=== PATIENT | male | born 1970 | race Caucasian/White ===

== ENCOUNTER 2018-02-08 14:36 | Inpatient (IN) ==
[2018-02-08] MEDS ORDERED: Clindamycin 900 mg/NS Premix 900 MG/50 ML PIGGYBACK IV.SIG ONE (15:36)
[2018-02-08] MEDS ORDERED: Vancomycin Consult Pharmacy 1 EACH OTHER SCH (16:00)
[2018-02-08] MEDS ORDERED: Vancomycin Inj 1,000 MG in Sodium Chlor 0.9% Inj 250 ML IV.SIG SCH (16:00)
[2018-02-08] MEDS ORDERED: Morphine Inj 4 MG/ML Vial IV.PUSH PRN (16:02)
[2018-02-08] MEDS ORDERED: Naloxone Inj 0.4 MG/ML Vial IV.PUSH PRN (16:02)
--- NOTE | 2018-02-08 16:17 | ED ---
HPI General Chief complaint: Recheck/Abnormal Lab/Rx Stated complaint: recheck wound Time Seen by Provider: 02/08/18 15:28 History of Present Illness HPI narrative: This is a 47-year-old male who presents today with draining abscess from his right ankle and posterior scalp. Patient states he was seen yesterday and had it I&D. He is here for wound check. The patient was given clindamycin, 900 mg IV x1 dose. He was discharged with clindamycin and Bactrim prescription. He has not yet filled the prescriptions. The patient states that his friend who saw it yesterday and this morning says it appears to be worse. He does have cellulitis of the right ankle. There is purulent drainage noted from both wounds. Please note that there were no cultures obtained yesterday when he had the I&D. Related Data Previous Rx's Medication Instructions Recorded clindamycin HCl [Cleocin HCl] 300 mg PO Q6H 10 Days #80 cap 02/07/18 sulfamethoxazole-trimethoprim 1 mg PO Q12H #20 tab 02/07/18 [Bactrim DS] Allergies Allergy/AdvReac Type Severity Reaction Status Date / Time No Known Allergies Allergy Verified 02/07/18 19:31 Review of Systems ROS: all other systems reviewed are negative Constitutional Denies chills, Denies fever(s) and Denies night sweats Eyes Reports system reviewed and no additional complaints, except as docu ENT Reports system reviewed and no additional complaints, except as docu Cardiovascular Reports system reviewed and no additional complaints, except as docu Respiratory Reports system reviewed and no additional complaints, except as docu Gastrointestinal Denies abdominal pain, Denies nausea and Denies vomiting Genitourinary Reports system reviewed and no additional complaints, except as docu Musculoskeletal Denies back pain and Reports limited range of motion (Right ankle secondary to swelling and pain) Integumentary/Breasts Reports other (Draining abscess of the posterior scalp and right ankle.) [facility] Medical History Medical History H/O wisdom tooth extraction (Acute) Hernia (Acute) Hypertension (Acute) Schizo-affective schizophrenia (Acute) Social History Social History Substance History: No History of Abuse Smoking Status: Current every day smoker Tobacco Type: Cigarettes How Often Do You Have a Drink Containing Alcohol: Never Recent Travel in [facility] within the Last 8 Weeks: No Recent Out of Country Travel within the Last 8 Weeks: No Immunization History Tetanus Immunization: <5 Years Exam Narrative Exam Narrative: GENERAL: Well-developed well-nourished male in no acute respiratory distress. SKIN: Focused skin assessment warm/dry. There is a draining abscess with purulent material on his right ankle. There is also one on the posterior scalp. HEAD: Atraumatic. Normocephalic. EYES: No scleral icterus. No injection or drainage. ENT: No nasal bleeding or discharge. Mucous membranes pink and moist. NECK: Trachea midline. Supple. CARDIOVASCULAR: Regular rate and rhythm. No murmur appreciated. RESPIRATORY: No accessory muscle use. Clear to auscultation. Breath sounds equal bilaterally. GASTROINTESTINAL: Abdomen soft, non-tender, nondistended. Hepatic and splenic margins not palpable. MUSCULOSKELETAL: No obvious deformities. No clubbing. No cyanosis. No edema. NEUROLOGICAL: Awake and alert. No obvious cranial nerve deficits. Motor grossly within normal limits. Normal speech. Course Initial Documented Vital Signs Temperature 98.0 F 02/08/18 14:47 Pulse Rate 91 H 02/08/18 14:47 Respiratory Rate 20 02/08/18 14:47 Blood Pressure 172/91 H 02/08/18 14:47 Pulse Oximetry 98 02/08/18 14:47 Last Documented Vital Signs Temperature 98.0 F 02/08/18 14:47 Pulse Rate 91 H 02/08/18 14:47 Respiratory Rate 20 02/08/18 14:47 Blood Pressure 172/91 H 02/08/18 14:47 Pulse Oximetry 98 02/08/18 14:47 Medical Decision Making [facility] Narrative Medical decision making narrative: 47-year-old male presents with right ankle cellulitis and draining abscess. Patient also has posterior scalp draining abscess. He has failed outpatient antibiotics and will be admitted for IV antibiotics. He has been started on vancomycin and Zosyn. Case was discussed with the [facility] teaching service. Medical Screen Exam Complete: Yes Emergency Medical Condition: Yes Differential Diagnosis Differential Diagnosis: MRSA versus cellulitis versus osteomyelitis Discharge Plan Discharge Disposition Patient Disposition: 30 Still Patient Discharge Details Diagnosis: Cellulitis of right ankle, Abscess of scalp Physicians Team ED Provider: Sean Andres Primary Care Provider: Primary Care Migdalia Bustamante Attending Provider: Anthony Etienne Status ED Status: Admitted Patient
[2018-02-08] MEDS ORDERED: Vancomycin Inj 1,250 MG in Sodium Chlor 0.9% Inj 250 ML IV.SIG ONE (17:00)
[2018-02-08 17:09] LABS: Baso % (Auto) 0.4 % (0.0-2.0); Eos # (Auto) 0.2 th/mm3 (0.0-0.4); Eos % (Auto) 2.4 % (0.0-4.0); Lymph # (Auto) 1.1 th/mm3 (1.0-4.8); Lymph % (Auto) 10.7 % (9.0-44.0); Mean Corpuscular HGB Conc 33.4 % (32.0-36.0); Mean Corpuscular Hemoglobin 29.2 pg (27.0-34.0); Mean Corpuscular Volume 87.4 fL (80.0-100.0); Mean Platelet Volume 7.6 fL (7.0-11.0); Mono # (Auto) 0.8 th/mm3 (0.0-0.9); Mono % (Auto) 7.7 % (0.0-8.0); Neut # (Auto) 7.8 th/mm3 (1.8-7.7); Neut % (Auto) 78.8 % (16.0-70.0); Platelet Count 378 th/mm3 (150-450); Red Blood Count 4.46 mil/mm3 (4.50-5.90); White Blood Count 9.9 th/mm3 (4.0-11.0)
[2018-02-08] MEDS: Piperacil/Tazo 4.5 GM Premix 4.5 GM/100 ML BAG IV.SIG SCH ×2 (17:11→23:55)
[2018-02-08 17:29] LABS: Anion Gap 8 meq/L (5-15); Blood Urea Nitrogen 10 mg/dL (7-18); Calcium 8.1 mg/dL (8.5-10.1); Carbon Dioxide 27.2 meq/L (21.0-32.0); Chloride 106 meq/L (98-107); Glomerular Filtration Rate Greater Than 89 mL/min (>89); Glucose,Random 91 mg/dL (74-106); Potassium 3.5 meq/L (3.5-5.1); Sodium 141 meq/L (136-145)
[2018-02-08] MEDS ORDERED: Gadobutrol PF 7.5 MMOL/7.5 ML Vial (for RAD) IV.SIG ONE (17:39)
--- NOTE | 2018-02-08 18:14 | MR ---
EXAM DATE: 02/08/2018 5:16 PM EDT AGE/SEX: 47 years / Male INDICATIONS: Osteomyelitis. Open wound right lateral malleolus. CLINICAL DATA: This is the patient's initial encounter. Patient reports that signs and symptoms have been present for 1 week and indicates a pain score of 5/10. MEDICAL/SURGICAL HISTORY: None. None. COMPARISON: No prior exams available for comparison. TECHNIQUE: Multiplanar, multisequence MRI examination was performed with contrast and after the intr avenous administration of 7 ml Gadavist (gadobutrol) contrast as a single exam dose. FINDINGS: There is extensive soft tissue swelling over the lateral malleolus with an open wound at the lateral malleolus with a small subcutaneous fluid collection present measuring approximately 3 cm length and 1 cm in width. There is extensive edema and enhancement that extends to the lateral malleolus. There is no marrow edema in the distal tibia, distal fibula calcaneus or talus. There is no significant joint effusion to suggest a septic joint at this juncture. The edema and induration is in intimate association with the lateral fibular complex tendons. The ed lauren is also in intimate association with the peroneal longus and brevis tendons. There is a small amount fluid around the peroneal brevis. The flexor tendons on the opposite side ar e not involved CONCLUSION: 1. Subcutaneous inflammatory changes with small subcutaneous fluid collection over the tip of the la teral malleolus as above without definite osteomyelitis or joint changes to suggest a septic arthriti s. 2. The small fluid collection could be accessed carefully under ultrasound Electronically signed by: Ignacio Castaneda MD 02/08/2018 6:13 PM EDT
--- NOTE | 2018-02-08 18:42 | P.HPFP ---
History of Present Illness Primary Care Physician: No Primary Care Physician History of Present Illness: This patient is a homeless 47-year-old male with a history of schizophrenia, previously diagnosed diabetes which was deemed a missed diagnosis, GERD, who is who presents the ED for opened abscess on the left occiput as well as on the right lateral ankle. Patient previously in the ED yesterday for incision and drainage of both sites and was discharged with clindamycin and Bactrim which she was not able to fill due to his homeless and noninsured status. Patient reports that the abscess on his left occiput began 1 week ago as a pimple that he eventually popped and started to put peroxide on as well as triple antibiotic. He continued to be gets pimple the pain will continue to drain pus and blood. He reports that the area is tender when palpated deeply but overall does not hurt. He reports that the ankle abscess appeared 3-4 days ago and began as a soreness. He relieved that he had rolled or twisted his ankle unknowingly. The pain continued until the abscess formed. He said he felt 3 soft little balls inside of his right ankle which he then later popped and released pus. He denies any fevers, chills, chest pain, shortness of breath, nausea, vomiting, abdominal pain, or diarrhea, but does endorse coughing up phlegm for the last 2 weeks that is yellow. PMHx: Schizophrenia diagnosed in 1998 previously treated with Geodon until 2016 when patient lost her job and could not afford the medication, GERD, diabetes which was ruled a missed diagnosis after 2 years, and then unrepaired inguinal hernia Surgical Hx: Patient has had multiple dental surgeries starting at 3 years of age due to a retracted tooth which she reports was on his maxilla near his nose. He had his wisdom teeth extracted at the age of 15. Patient received an I&D of his head and right ankle yesterday. Medications: Patient previously on Geodon until 2016 currently not on any medications FHx: Mother at the age of 71 due to severe heart disease, father at 82 from suicide Social Hx: Patient has been homeless since 2016 he was previously working in factories, he has a [id number] smoking history with a 7-year break of absence. Patient is currently still an every day smoker smoking a pack a day. He denies any use of ethanol or drugs because he cannot afford it. Allergies: None Code Status: Full code - Diagnosis (1) Abscess of scalp (2) Cellulitis of right ankle (3) Schizophrenia (4) Diabetes Inpatient Certification: I certify that the inpatient services were ordered in accordance with Medicare regulations governing the order. This includes certification that hospital inpatient services are reasonable and necessary and in the case of services not specified as inpatient-only under 42 CFR 419.22(n), that they are appropriately provided as inpatient services in accordance to with the 2-midnight benchmark under 43 CFR 412.3(e) Estimated Total Length of Stay (Days): 2 Plans for Post Hospital Care: Home Review of Systems Constitutional: Denies chills, Denies fever(s), Denies headache(s), Denies dizziness, Eyes: Denies change in vision, Denies double vision, Denies blurry vision Cardiovascular: Denies chest pain, Denies fast heart rate, Denies rapid, pounding, or irregular heartbeat Respiratory: Denies shortness of breath or wheezing Gastrointestinal: Denies abdominal pain, Denies constipation, Denies loose stools, Denies nausea, Denies vomiting Genitourinary: Denies difficulty urinating, Denies painful urination, Denies urinary frequency, Denies blood in urine Musculoskeletal: Patient admits to pump on the back of his left occiput that eventually turned into an abscess that drained pus and blood as well as a right ankle that originally felt sore but later turned into an abscess that also drained pus. PMFSH - History History Provided By: Patient - Medical History Medical History: Medical History (Last Updated 02/07/18 @ 20:04 by Myra Arauz) H/O wisdom tooth extraction Hernia Hypertension Schizo-affective schizophrenia - Tobacco History Tobacco Use In Past 30 Days: Yes Smoking Status: Current every day smoker Tobacco Type: Cigarettes - Alcohol History How Often Do You Have a Drink Containing Alcohol: Never - Substance Use History Substance History: No History of Abuse - Travel History Recent Travel in the [place] Within the Last 8 Weeks: No Recent Travel Out of the Country Within the Last 8 Weeks: No - Immunization History Tetanus Immunization: <5 Years Medications and Allergies Active Medications: Active Medications Hydrocodone Bitart/Acetaminophen ([place] 5/325) 1 tab PO Q4H PRN PRN Reason: PAIN SCALE 3 TO 5 Hydrocodone Bitart/Acetaminophen ([place] 7.5/325) 1 tab PO Q4H PRN PRN Reason: PAIN SCALE 6 TO 10 Pharmacy Profile Note (Vancomycin Consult Pharmacy) 0 mls @ 0 mls/hr OTHER UNSCH [facility]ENOBIA Piperacillin/Tazobactam/Dextrose (Zosyn 4.5 Gm Premix) 4.5 gm in 100 mls @ 200 mls/hr IV.SIG Q6H [facility] Last Infusion: 02/08/18 18:19 Dose: Infused Ibuprofen (Motrin) 400 mg PO Q6HR [facility]OB[facility] Morphine Sulfate (Morphine Inj) 4 mg IV.PUSH Q3H PRN PRN Reason: BREAKTHROUGH PAIN Naloxone HCl (Narcan Inj) 0.4 mg IV.PUSH UNSCH PRN PRN Reason: SEE LABEL COMMENTS Allergies Allergy/AdvReac Type Severity Reaction Status Date / Time No Known Allergies Allergy Verified 02/07/18 19:31 Exam Vital signs: Vital Signs 02/08/18 14:47 Temperature 98.0 F Pulse Rate 91 H Respiratory Rate 20 Blood Pressure 172/91 H Pulse Oximetry 98 Intake & Output 02/07/18 02/08/18 02/08/18 18:59 06:59 18:59 Intake Total 150 / 150 Balance 150 / 150 Weight 81.647 kg Intake: IV 150 / 150 Cleocin 900 mg/NS Premix 900 mg 50 / 50 In 50 ml @ 100 mls/hr IV.SIG ONCE ONE Rx#:[id number] Zosyn 4.5 GM Premix 4.5 gm In 100 / 100 100 ml @ 200 mls/hr IV.SIG Q6H [facility] Rx#:[id number] Narrative: GENERAL: Well-nourished, well-developed patient but disheveled. No acute distress. SKIN: Patient has an 11 x 9 cm abscess in the left side of his occiput with a 2.5 x 2.5 draining opening that is visibly draining green purulent material. The patient also has a 10 x 10 area of erythema and abscess with a 2 x 2 opening which is also draining purulent material. A cotton swab was inserted into the wound which did touch upon. The rest the patient's extremities were checked including feet with no other visible signs of infection. EYES: No scleral icterus. No injection or drainage. PERRLA. EOMI. HENT: Normocephalic. Atraumatic. MMM. OP Benign. NECK: Supple, trachea midline. No JVD or lymphadenopathy. CARDIOVASCULAR: Regular rate and rhythm without obvious murmurs, gallops, or rubs. RESPIRATORY: Breath sounds equal bilaterally. No accessory muscle use. CTAB. GASTROINTESTINAL: Abdomen soft, non-tender, nondistended. BS WNL. BACK: Nontender without obvious deformity. No CVA tenderness. NEURO/PSYCH: Afocal. Awake, alert, and oriented x3. Results - Labs Result diagrams: 02/08/18 16:20 02/08/18 16:20 Abnormal lab results 02/08/18 02/08/18 02/08/18 Range/Units 16:20 16:20 16:20 RBC 4.46 L (4.50-5.90) mil/mm3 Neut % (Auto) 78.8 H (16.0-70.0) % Neut # (Auto) 7.8 H (1.8-7.7) th/mm3 ESR 40 H (0-15) mm/hr Calcium 8.1 L (8.5-10.1) mg/dL Short CBC 02/08/18 Range/Units 16:20 WBC 9.9 (4.0-11.0) th/mm3 Hgb 13.0 (13.0-17.0) gm/dL Hct 39.0 (39.0-51.0) % Plt Count 378 (150-450) th/mm3 [facility] 02/08/18 16:20 Sodium 141 Potassium 3.5 Chloride 106 Carbon Dioxide 27.2 BUN 10 Creatinine 0.85 Calcium 8.1 L - Imaging Impressions Ankle MRI 02/08/18 16:14 CONCLUSION: 1. Subcutaneous inflammatory changes with small subcutaneous fluid collection over the tip of the lateral malleolus as above without definite osteomyelitis or joint changes to suggest a septic arthritis. 2. The small fluid collection could be accessed carefully under ultrasound Caprini VTE Risk Assessment Caprini VTE Risk Assessment: No/Low Risk (score <= 1) Caprini Risk Assessment Model: Point Value = 1 Point Value = 2 Point Value = 3 Point Value = 5 Age 41-60 Minor surgery BMI > 25 kg/m2 Swollen legs Varicose veins or History of unexplained or recurrent spontaneous Oral contraceptives or hormone replacement Sepsis (< 1 month) Serious lung disease, including pneumonia (< 1 month) Abnormal pulmonary function Acute myocardial infarction Congestive heart failure (< 1 month) History of inflammatory bowel disease Medical patient at bed rest Age 61-74 Arthroscopic surgery Major open surgery (> 45 min) Laparoscopic surgery (> 45 min) Malignancy Confined to bed (> 72 hours) Immobilizing plaster cast Central venous access Age >= 75 History of VTE Family history of VTE Factor V Leiden Prothrombin [id number] Lupus anticoagulant Anticardiolipin antibodies Elevated serum homocysteine Heparin-induced thrombocytopenia Other congenital or acquired thrombophilia Stroke (< 1 month) Elective arthroplasty Hip, pelvis, or leg fracture Acute spinal cord injury (< 1 month) Prophylaxis Regimen: Total Risk Factor Score Risk Level Prophylaxis Regimen 0-1 Low Early ambulation 2 Moderate Order ONE of the following: *Sequential Compression Device (SCD) *Heparin 5000 units SQ BID 3-4 Higher Order ONE of the following medications: *Heparin 5000 units SQ TID *Enoxaparin/Lovenox 40 mg SQ daily (WT < 150 kg, CrCl > 30 mL/min) *Enoxaparin/Lovenox 30 mg SQ daily (WT < 150 kg, CrCl > 10-29 mL/min) *Enoxaparin/Lovenox 30 mg SQ BID (WT < 150 kg, CrCl > 30 mL/min) AND/OR *Sequential Compression Device (SCD) 5 or more Highest Order ONE of the following medications: *Heparin 5000 units SQ TID (Preferred with Epidurals) *Enoxaparin/Lovenox 40 mg SQ daily (WT < 150 kg, CrCl > 30 mL/min) *Enoxaparin/Lovenox 30 mg SQ daily (WT < 150 kg, CrCl > 10-29 mL/min) *Enoxaparin/Lovenox 30 mg SQ BID (WT < 150 kg, CrCl > 30 mL/min) AND *Sequential Compression Device (SCD) Assessment and Plan - Assessment (1) Abscess of scalp Code(s): L02.811 - Cutaneous abscess of head [any part, except face] Status: Acute Plan: Patient is a one-week history of scalp abscess on the back of his left occiput. The abscess was incised and drained in the ED recently. Patient was not able to take his prescribed clindamycin and Bactrim due to his uninsured status as well as being homeless. Patient has been placed on broad-spectrum antibiotics include vancomycin, Zosyn, and clindamycin. The area of erythema has been demarcated and will be assessed tomorrow morning. Patient is currently afebrile with no signs of systemic infection but blood cultures have been taken. -Continue broad-spectrum antibiotics until cultures return -Follow-up blood cultures -Follow-up with wound care recommendations (2) Cellulitis of right ankle Code(s): L03.115 - Cellulitis of right lower limb Status: Acute Plan: Patient has an open and draining abscess over the lateral malleolus of the right ankle. Due to positive probe test and MRI of the ankle was completed that showed subcutaneous inflammatory changes with fluid collection of the tip of the lateral malleolus without definite osteomyelitis or joint changes to suggest septic arthritis. Patient ESR was 40 which is not suggestive of osteomyelitis at this time. The patient has been placed on broad-spectrum antibiotics include vancomycin and Zosyn as well as clindamycin. Patient currently has wound consult in as well as a consult with case management. -Continue antibiotic treatment The area has been demarcated and will be reassessed tomorrow morning. -Follow-up with wound care recommendations -Monitor erythemic margins -Follow-up with wound cultures (3) Schizophrenia Code(s): F20.9 - Schizophrenia, unspecified Status: Acute Plan: Patient reports being diagnosed with schizophrenia in 1998 and placed on Geodon 2015 when he cannot afford his medication any longer. Patient denies any visual or auditory hallucinations at this time. Patient also denies patient currently asymptomatic and will be referred to psychiatric treatment outpatient. -If patient becomes acutely psychotic consider the use of Geodon (4) Diabetes Code(s): E11.9 - Type 2 diabetes mellitus without complications Status: Acute Plan: Reports previously being diagnosed as a type II diabetic years ago, a diagnosis was later rescinded and deemed a missed diagnosis. Patient had a random glucose of 91 in the ED. Patient currently not hyperglycemic and blood glucose will be monitored to assess hyper or hypoglycemia.
[2018-02-08] MEDS: Ibuprofen 400 MG Tablet PO SCH ×2 (19:25→23:56)
[2018-02-09] MEDS: Piperacil/Tazo 4.5 GM Premix 4.5 GM/100 ML BAG IV.SIG SCH ×4 (05:37→23:33)
[2018-02-09] MEDS: Ibuprofen 400 MG Tablet PO SCH ×4 (05:38→23:33)
[2018-02-09 08:36] LABS: Baso % (Auto) 0.5 % (0.0-2.0); Eos # (Auto) 0.3 th/mm3 (0.0-0.4); Eos % (Auto) 3.7 % (0.0-4.0); Hematocrit 37.7 % (39.0-51.0); Hemoglobin 12.3 gm/dL (13.0-17.0); Lymph # (Auto) 1.2 th/mm3 (1.0-4.8); Lymph % (Auto) 15.3 % (9.0-44.0); Mean Corpuscular HGB Conc 32.7 % (32.0-36.0); Mean Corpuscular Hemoglobin 28.5 pg (27.0-34.0); Mean Corpuscular Volume 87.3 fL (80.0-100.0); Mean Platelet Volume 7.3 fL (7.0-11.0); Mono # (Auto) 0.7 th/mm3 (0.0-0.9); Mono % (Auto) 9.2 % (0.0-8.0); Neut # (Auto) 5.6 th/mm3 (1.8-7.7); Neut % (Auto) 71.3 % (16.0-70.0); Platelet Count 338 th/mm3 (150-450); Red Blood Count 4.32 mil/mm3 (4.50-5.90); Red Cell Distribution Width 14.5 % (11.6-17.2); White Blood Count 7.9 th/mm3 (4.0-11.0)
[2018-02-09 09:04] LABS: Anion Gap 5 meq/L (5-15); Carbon Dioxide 28.2 meq/L (21.0-32.0); Chloride 110 meq/L (98-107); Glomerular Filtration Rate Greater Than 89 mL/min (>89); Glucose,Random 91 mg/dL (74-106); Potassium 3.8 meq/L (3.5-5.1); Sodium 143 meq/L (136-145)
[2018-02-09 09:13] LABS: Blood Urea Nitrogen 9 mg/dL (7-18)
[2018-02-09] MEDS: Vancomycin Inj 1,750 MG in Sodium Chlor 0.9% Inj 500 ML IV.SIG SCH (12:57)
--- NOTE | 2018-02-09 15:44 | P.PNFP ---
Subjective Interval history: Patient was seen at bedside this morning. There were no acute events overnight. Patient reports no change in status. He denies any discomfort in the back of his head even while sleeping on the abscess. He denies any changes in drainage. It was discussed with the patient the possibility that this might be a co-infected area with possible fungus and a fungal culture was taken at bedside. Patient denies any subjective fevers, chills, shortness of breath, chest pain, nausea, or vomiting. All questions were answered to the patient's satisfaction and patient reports that he understands and agrees with the plan. <Cornelio Zamudio - 02/09/18 15:44> Results - Labs Result diagrams: 02/09/18 08:18 02/09/18 08:18 <Anthony Etienne - 02/09/18 21:04> Abnormal lab results 02/09/18 02/09/18 Range/Units 08:18 08:18 RBC 4.32 L (4.50-5.90) mil/mm3 Hgb 12.3 L (13.0-17.0) gm/dL Hct 37.7 L (39.0-51.0) % Neut % (Auto) 71.3 H (16.0-70.0) % Maries % (Auto) 9.2 H (0.0-8.0) % Chloride 110 H (98-107) meq/L Calcium 8.0 L (8.5-10.1) mg/dL Short CBC 02/09/18 Range/Units 08:18 WBC 7.9 (4.0-11.0) th/mm3 Hgb 12.3 L (13.0-17.0) gm/dL Hct 37.7 L (39.0-51.0) % Plt Count 338 (150-450) th/mm3 BMP 02/09/18 08:18 Sodium 143 Potassium 3.8 Chloride 110 H Carbon Dioxide 28.2 BUN 9 Creatinine 0.80 Calcium 8.0 L <Anthony Etienne - 02/09/18 21:04> Abnormal lab results 02/08/18 02/08/18 02/08/18 Range/Units 16:20 16:20 16:20 RBC 4.46 L (4.50-5.90) mil/mm3 Hgb (13.0-17.0) gm/dL Hct (39.0-51.0) % Neut % (Auto) 78.8 H (16.0-70.0) % Maries % (Auto) (0.0-8.0) % Neut # (Auto) 7.8 H (1.8-7.7) th/mm3 ESR 40 H (0-15) mm/hr Chloride (98-107) meq/L Calcium 8.1 L (8.5-10.1) mg/dL 02/09/18 02/09/18 Range/Units 08:18 08:18 RBC 4.32 L (4.50-5.90) mil/mm3 Hgb 12.3 L (13.0-17.0) gm/dL Hct 37.7 L (39.0-51.0) % Neut % (Auto) 71.3 H (16.0-70.0) % Maries % (Auto) 9.2 H (0.0-8.0) % Neut # (Auto) (1.8-7.7) th/mm3 ESR (0-15) mm/hr Chloride 110 H (98-107) meq/L Calcium 8.0 L (8.5-10.1) mg/dL Short CBC 02/08/18 02/09/18 Range/Units 16:20 08:18 WBC 9.9 7.9 (4.0-11.0) th/mm3 Hgb 13.0 12.3 L (13.0-17.0) gm/dL Hct 39.0 37.7 L (39.0-51.0) % Plt Count 378 338 (150-450) th/mm3 [facility] [place] [facility] 02/08/18 02/09/18 16:20 08:18 Sodium 141 143 Potassium 3.5 3.8 Chloride 106 110 H Carbon Dioxide 27.2 28.2 BUN 10 9 Creatinine 0.85 0.80 Calcium 8.1 L 8.0 L <Cornelio Zamudio - 02/09/18 15:44> - Imaging Impressions Ankle MRI 02/08/18 16:14 CONCLUSION: 1. Subcutaneous inflammatory changes with small subcutaneous fluid collection over the tip of the lateral malleolus as above without definite osteomyelitis or joint changes to suggest a septic arthritis. 2. The small fluid collection could be accessed carefully under ultrasound <Cornelio Zamudio - 02/09/18 15:44> Physical Exam Vital signs: Vital Signs 02/09/18 00:00 02/09/18 04:00 02/09/18 08:00 Temperature 98.2 F 97.6 F 96.4 F L Pulse Rate 52 L 60 Respiratory Rate 20 20 16 Blood Pressure 137/87 134/82 152/83 H Pulse Oximetry 96 96 94 L 02/09/18 10:50 02/09/18 12:00 Temperature 97.9 F Pulse Rate 60 Respiratory Rate 18 Blood Pressure 137/77 Pulse Oximetry 92 L 96 Intake & Output 02/09/18 02/09/18 02/10/18 06:59 18:59 06:59 Intake Total 462.5 / 462.5 717.5 / 717.5 Balance 462.5 / 462.5 717.5 / 717.5 Weight 85.9 kg Intake: IV 462.5 / 462.5 717.5 / 717.5 Zosyn 4.5 GM Premix 4.5 gm In 200 / 200 200 / 200 100 ml @ 200 mls/hr IV.SIG Q6H [facility] Rx#:[id number] Vancomycin Inj 1,250 MG In NS 262.5 / 262.5 Inj 250 ML @ 250 mls/hr IV.SIG ONCE ONE Rx#:[id number] Vancomycin Inj 1,750 MG In NS 517.5 / 517.5 Inj 500 ML @ 250 mls/hr IV.SIG Q12H [facility] Rx#:[id number] Other: # Voids 2 Date of Last Bowel Movement 02/08/18 02/08/18 # Bowel Movements 1 <Anthony Etienne - 02/09/18 21:04> Vital Signs 02/08/18 20:00 02/09/18 00:00 02/09/18 04:00 Temperature 98.2 F 98.2 F 97.6 F Pulse Rate 83 52 L Respiratory Rate 20 20 20 Blood Pressure 150/73 H 137/87 134/82 Pulse Oximetry 94 L 96 96 02/09/18 08:00 02/09/18 10:50 02/09/18 12:00 Temperature 96.4 F L 97.9 F Pulse Rate 60 60 Respiratory Rate 18 18 Blood Pressure 152/83 H 137/77 Pulse Oximetry 94 L 92 L 96 Intake & Output 1002/09/18 02/09/18 18:59 06:59 18:59 Intake Total 150 / 150 462.5 / 462.5 100 / 100 Balance 150 / 150 462.5 / 462.5 100 / 100 Weight 81.647 kg 85.9 kg Intake: IV 150 / 150 462.5 / 462.5 100 / 100 Cleocin 900 mg/NS Premix 900 mg 50 / 50 In 50 ml @ 100 mls/hr IV.SIG ONCE ONE Rx#:[id number] Zosyn 4.5 GM Premix 4.5 gm In 100 / 100 200 / 200 100 / 100 100 ml @ 200 mls/hr IV.SIG Q6H [facility] Rx#:[id number] Vancomycin Inj 1,250 MG In NS 262.5 / 262.5 Inj 250 ML @ 250 mls/hr IV.SIG ONCE ONE Rx#:[id number] Other: # Voids 2 Date of Last Bowel Movement 02/08/18 02/08/18 # Bowel Movements 1 <Cornelio Zamudio 02/09/18 15:44> Narrative: GENERAL: Well-nourished, well-developed patient. Cooperative and engaging. No acute distress. SKIN: Abscess on left occiput has receded approximately a centimeter from previously demarcated area. The surrounding tissue is less erythematous but still has significant induration without fluctuance. The wound continues to drain a green colored purulent material that is not noticeably malodorous. Wound continues to be nonpainful upon palpation. Abscess in the lateral right malleolus appears unchanged from physical exam yesterday. Margins continue to be at light of erythema, the erythema has not gone beyond nor receded from the previous demarcation. Wound continues to drain greenish purulent material. EYES: No scleral icterus. No injection or drainage. EOMI. HENT: Normocephalic. Atraumatic. CARDIOVASCULAR: Regular rate and rhythm without obvious murmurs, gallops, or rubs. RESPIRATORY: Breath sounds equal bilaterally. No accessory muscle use. CTAB. GASTROINTESTINAL: Abdomen soft, non-tender, nondistended. BS WNL. BACK: Nontender without obvious deformity. No CVA tenderness. NEURO/PSYCH: Afocal. Awake, alert, and oriented x3. <Cornelio Zamudio 02/09/18 15:44> Assessment and Plan - Assessment (1) Abscess of scalp Code(s): L02.811 - Cutaneous abscess of head [any part, except face] Status: Acute (2) Cellulitis of right ankle Code(s): L03.115 - Cellulitis of right lower limb Status: Acute (3) Schizophrenia Code(s): F20.9 - Schizophrenia, unspecified Status: Acute (4) Diabetes Code(s): E11.9 - Type 2 diabetes mellitus without complications Status: Acute <Jaimie,Anthony - 02/09/18 21:04> (1) Abscess of scalp Code(s): L02.811 - Cutaneous abscess of head [any part, except face] Status: Acute Plan: Abscess on left occiput of his scalp appears to be receding from previous demarcation. The wound continues to be painless and fungal cultures were taken by myself Dr. Tovar this morning. -Continue broad-spectrum antibiotics until cultures return -Blood culture showed no growth at 1 day -Follow-up with fungal culture and smear -Continue vancomycin and Zosyn (2) Cellulitis of right ankle Code(s): L03.115 - Cellulitis of right lower limb Status: Acute Plan: Patient cellulitis of the right ankle appears unchanged from yesterday. Demarcation continues to be a area of erythema. The wound itself continues to drain green purulent material. Gram stain and wound cultures have returned for the right ankle which showed MRSA, patient to continue on vancomycin. -Follow-up with wound care recommendations -Monitor erythemic margins -Continue vancomycin (3) Schizophrenia Code(s): F20.9 - Schizophrenia, unspecified Status: Acute Plan: Patient reports being diagnosed with schizophrenia in 1998 and placed on Geodon 2015 when he cannot afford his medication any longer. Patient denies any visual or auditory hallucinations at this time. Patient also denies patient currently asymptomatic and will be referred to psychiatric treatment outpatient. -If patient becomes acutely psychotic consider the use of Geodon (4) Diabetes Code(s): E11.9 - Type 2 diabetes mellitus without complications Status: Acute Plan: Reports previously being diagnosed as a type II diabetic years ago, a diagnosis was later rescinded and deemed a missed diagnosis. Patient had a random glucose of 91 in the ED and 91 this morning and repeat blood work. Patient unlikely to have diabetes, and history of missed diagnosis most likely correct. -Monitor for any signs of hypoglycemia <Cornelio Zamudio - 02/09/18 15:29> - Attending Attestation The exam, history, and the medical decision-making described in the above note were completed with the assistance of the resident physician. I reviewed and agree with the findings presented. I attest that I had a [id number] encounter with the patient on the same day, and personally performed and documented my assessment and findings in the medical record. <Anthony Etienne - 02/09/18 21:04>
--- NOTE | 2018-02-09 17:54 | P.PNWCN ---
Wound Care Nurse Consult Description: Consult for Wound Management of infected and ulcerated wound lateral right ankle and posterior head per Dr Lew Communicated with: Patient Chepe, RN Called call center @[phone], waited on hold for 10 minutes listening to how the next available agent would be with me shortly, with position in que being 1 for ten minutes and then being disconnected. Called back and was able to speak with call or contact centre operator who placed page to Dr Zamudio. Recommendation: I&D with washout of posterior head. Possible wound VAC placement. If wound is not wound VAC appropriate after I&D with washout; Recommend: Dakins quarter strength (0.125%) moist to dry BID packing after irrigating with NS (x2 weeks). Right lateral malleolus BID: Quarter strength Dakins (0.125%) moist to dry BID packing after irrigating with NS (x2 weeks). Additional information: Patient seen on for head and ankle wounds. Wounds cleansed with wound cleanser and gauze. Wounds were measured. Wounds packed with Iodoform and covered with dry covers dated today. Wound/Pressure Injury - Patient Status Premedicated for Pain Prior to Dressing Change: No - Wound Posterior Head Wound Assessment: Admission Is This a Chronic Wound: No Requested from Provider a Wound Care Consult: Yes Length (cm): 1.5 (cm) Width (cm): 2.4 (cm) Depth (cm): 1.3 (cm) Wound Bed Appearance: [place] (~20%), Red (non granulating tissue~40%), Yellow ( slough ~30% adipose ~10% ) Wound Bed Appearance: Surgical debridement at bedside performed 2 days ago leaving an open wound in the shape of a sideways cross. Wound bed is moist with yellow thick exudate noted from wound and tiny holes in the periwound when gently pressing on the induration from 7-9 o'clock extending out ~2-3 cm with erythema noted circumferentially. Surrounding Tissue Appearance: Erythema, Indurated Surrounding Tissue Temperature: Warm Drainage Description: Thick (yellow) Drainage Amount: Minimal Drainage Odor: No Odor Dressing Status: Changed Cleansing Solution: wound cleanser Wound Packing Type: Gauze Packing Strips (iodoform) Primary Dressing: bordered gauze Tape Type: Transparent Wound Dressing Change Date: 02/09/18 Right Lateral Malleolus Wound Assessment: Admission Is This a Chronic Wound: No Requested from Provider a Wound Care Consult: Yes Length (cm): 2 (cm) Width (cm): 1.6 (cm) Depth (cm): 0.8 (cm) Wound Bed Appearance: White, Yellow Wound Bed Appearance: loosely adherent slough obscuring true wound bed tissues, bone palpated, sanguinous thin minimal drainage. Periwound is macerated with friable loosely adhered white/hassan tissue. Surrounding Tissue Appearance: Edematous, Erythema Surrounding Tissue Temperature: Warm Drainage Description: Thin (serosang) Drainage Amount: Minimal Drainage Odor: Slight Odor Dressing Status: Changed Cleansing Solution: wound cleanser Wound Packing Type: Gauze Packing Strips (iodoform) Primary Dressing: Gauze Pad Cover Dressing: Gauze Roll/Wrap Wound Dressing Change Date: 02/09/18
[2018-02-10] MEDS: Vancomycin Inj 1,750 MG in Sodium Chlor 0.9% Inj 500 ML IV.SIG SCH ×2 (00:38→15:44)
[2018-02-10] MEDS: Piperacil/Tazo 4.5 GM Premix 4.5 GM/100 ML BAG IV.SIG SCH ×4 (05:26→23:54)
[2018-02-10] MEDS: Ibuprofen 400 MG Tablet PO SCH ×4 (05:27→23:55)
[2018-02-10 07:14] LABS: Baso # (Auto) 0.1 th/mm3 (0.0-0.2); Baso % (Auto) 1.1 % (0.0-2.0); Eos # (Auto) 0.3 th/mm3 (0.0-0.4); Eos % (Auto) 4.5 % (0.0-4.0); Hematocrit 36.6 % (39.0-51.0); Lymph # (Auto) 1.3 th/mm3 (1.0-4.8); Lymph % (Auto) 22.3 % (9.0-44.0); Mean Corpuscular HGB Conc 32.7 % (32.0-36.0); Mean Corpuscular Hemoglobin 28.6 pg (27.0-34.0); Mean Corpuscular Volume 87.4 fL (80.0-100.0); Mean Platelet Volume 7.5 fL (7.0-11.0); Mono # (Auto) 0.5 th/mm3 (0.0-0.9); Mono % (Auto) 9.3 % (0.0-8.0); Neut # (Auto) 3.6 th/mm3 (1.8-7.7); Neut % (Auto) 62.8 % (16.0-70.0); Platelet Count 346 th/mm3 (150-450); Red Blood Count 4.19 mil/mm3 (4.50-5.90); Red Cell Distribution Width 14.3 % (11.6-17.2); White Blood Count 5.8 th/mm3 (4.0-11.0)
[2018-02-10 07:51] LABS: Glomerular Filtration Rate Greater Than 89 mL/min (>89)
--- NOTE | 2018-02-10 09:43 | P.CON ---
History of Present Illness Consult date: 02/10/18 Reason for Consult: Occipital scalp abscess Primary Care Provider: No Primary Care Physician History of Present Illness: Patient is a 47-year-old male with a history of schizophrenia who has previously diagnosed diabetes and presented to the ED for abscess of the occiput as well as right lateral ankle. Patient was seen in the ED on 1012, at which time he underwent incision and drainage of both sites. Patient reports that the abscess on the occiput began a week prior that was a bite or pimple that he squeezed daily, after which he put peroxide on it. Patient was admitted for definitive care after failing outpatient management. Review of Systems Respiratory: Reports excessive phlegm production PMFSH - History History Provided By: Patient - Medical History Medical History: Medical History (Last Reviewed 02/10/18 @ 08:38 by Shahla Willard) MDRO (multiple drug resistant organisms) resistance Onset Date: ~02/08/18 H/O wisdom tooth extraction Hernia Hypertension Schizo-affective schizophrenia - Tobacco History Tobacco Use In Past 30 Days: Yes Smoking Status: Current every day smoker Tobacco Type: Cigarettes - Alcohol History How Often Do You Have a Drink Containing Alcohol: Never - Substance Use History Substance History: No History of Abuse - Travel History Recent Travel in the [place] Within the Last 8 Weeks: No Recent Travel Out of the Country Within the Last 8 Weeks: No - Immunization History Tetanus Immunization: <5 Years Medications and Allergies Active Medications: Active Medications Hydrocodone Bitart/Acetaminophen ([place] 5/325) 1 tab PO Q4H PRN PRN Reason: PAIN SCALE 3 TO 5 Hydrocodone Bitart/Acetaminophen ([place] 7.5/325) 1 tab PO Q4H PRN PRN Reason: PAIN SCALE 6 TO 10 Pharmacy Profile Note (Vancomycin Consult Pharmacy) 0 mls @ 0 mls/hr OTHER UNSCH [facility] Piperacillin/Tazobactam/Dextrose (Zosyn 4.5 Gm Premix) 4.5 gm in 100 mls @ 200 mls/hr IV.SIG Q6H [facility] Last Infusion: 02/10/18 05:55 Dose: Infused Vancomycin HCl 1,750 mg/ (Sodium Chloride) 517.5 mls @ 250 mls/hr IV.SIG Q12H [facility] Last Infusion: 02/10/18 02:45 Dose: Infused Ibuprofen (Motrin) 400 mg PO Q6HR [facility] Last Admin: 02/10/18 05:27 Dose: 400 mg Miscellaneous Information ([facility] Ordered Lab Info) 0 each OTHER ONCE ONE Stop: 02/11/18 00:46 Morphine Sulfate (Morphine Inj) 4 mg IV.PUSH Q3H PRN PRN Reason: BREAKTHROUGH PAIN Naloxone HCl (Narcan Inj) 0.4 mg IV.PUSH UNSCH PRN PRN Reason: SEE LABEL COMMENTS Allergies Allergy/AdvReac Type Severity Reaction Status Date / Time No Known Allergies Allergy Verified 02/07/18 19:31 Physical Exam Vital signs: Vital Signs 02/09/18 10:50 02/09/18 12:00 02/09/18 20:00 Temperature 97.9 F 97.7 F Pulse Rate 60 70 Respiratory Rate 18 20 Blood Pressure 137/77 151/89 H Pulse Oximetry 92 L 96 96 02/09/18 21:17 02/10/18 00:00 02/10/18 04:00 Temperature 97.9 F 97.6 F Pulse Rate 55 L 68 Respiratory Rate 20 20 Blood Pressure 143/91 H 140/71 Pulse Oximetry 93 L 96 96 Intake & Output 02/09/18 02/10/18 02/10/18 18:59 06:59 18:59 Intake Total 717.5 / 717.5 717.5 / 717.5 Balance 717.5 / 717.5 717.5 / 717.5 Weight 88.1 kg Intake: IV 717.5 / 717.5 717.5 / 717.5 Zosyn 4.5 GM Premix 4.5 gm In 200 / 200 200 / 200 100 ml @ 200 mls/hr IV.SIG Q6H [facility] Rx#:[id number] Vancomycin Inj 1,750 MG In NS 517.5 / 517.5 517.5 / 517.5 Inj 500 ML @ 250 mls/hr IV.SIG Q12H [facility] Rx#:[id number] Other: # Voids 2 Date of Last Bowel Movement 02/08/18 02/08/18 - Constitutional no acute distress - Routine HEENT Exam Head: Present: normocephalic Comments: 3 cm area opening on posterior occiput with small amount of purulent material on iodoform packing. Packing material removed. No bleeding or active drainage - Routine Respiratory Exam Present: CTA bilaterally - Routine Cardiovascular Exam Present: RRR Assessment and Plan - Assessment (1) Abscess of scalp Code(s): L02.811 - Cutaneous abscess of head [any part, except face] Status: Acute Plan: 3 times daily peroxide to open wound, followed by dressing of the wound. We will follow with you. No further surgical intervention is required at this time. - Plan Discussed Condition With: Patient Nursing staff - Art - Attending Attestation I attest that I had a [id number] encounter with the patient on the same day, and personally performed and documented my assessment and findings in the medical record. The following services were provided during this hospital visit: Chart data review, vital sign assessments/reviewing monitor data Review of consultation notes if present Medication orders/review and/or management Ordering and/or reviewing lab tests Ordering and/or interpreting/reviewing x-rays and/or diagnostic studies Care of the patient and discussion of the patient with the care team Documentation time To help prompt me to consider important information that might be impacting today's encounter and assessment, Information from prior notes written by myself or my colleagues may have been "brought forward/copy and pasted" into today's note.
--- NOTE | 2018-02-10 10:32 | P.PNFP ---
Subjective Interval history: Patient was seen at bedside this morning. There were no acute events overnight. Patient reports to continue to feel overall well. He denies any significant pain on his head or ankle. He says he is ambulating well and has had no concerns at this time. Patient denies any subjective fevers, chills, shortness of breath, chest pain, nausea, or vomiting. Plans to evaluate the head for possible secondary incision and drainage as well as continuation of antibiotics in setting of MRSA were discussed with the patient and all questions were answered to the patient's satisfaction. Results - Labs Result diagrams: 02/10/18 06:16 02/10/18 06:16 Abnormal lab results 02/10/18 Range/Units 06:16 RBC 4.19 L (4.50-5.90) mil/mm3 Hgb 12.0 L (13.0-17.0) gm/dL Hct 36.6 L (39.0-51.0) % Miller % (Auto) 9.3 H (0.0-8.0) % Eos % (Auto) 4.5 H (0.0-4.0) % Short CBC 02/10/18 Range/Units 06:16 WBC 5.8 (4.0-11.0) th/mm3 Hgb 12.0 L (13.0-17.0) gm/dL Hct 36.6 L (39.0-51.0) % Plt Count 346 (150-450) th/mm3 BMP 02/10/18 06:16 Creatinine 0.71 Physical Exam Vital signs: Vital Signs 02/09/18 10:50 02/09/18 12:00 02/09/18 20:00 Temperature 97.9 F 97.7 F Pulse Rate 60 70 Respiratory Rate 18 20 Blood Pressure 137/77 151/89 H Pulse Oximetry 92 L 96 96 02/09/18 21:17 02/10/18 00:00 02/10/18 04:00 Temperature 97.9 F 97.6 F Pulse Rate 55 L 68 Respiratory Rate 20 20 Blood Pressure 143/91 H 140/71 Pulse Oximetry 93 L 96 96 02/10/18 08:00 02/10/18 09:48 Temperature 97.5 F L Pulse Rate 57 L Respiratory Rate 16 Blood Pressure 152/95 H Pulse Oximetry 96 93 L Intake & Output 02/09/18 02/10/1818 18:59 06:59 18:59 Intake Total 717.5 / 717.5 717.5 / 717.5 Balance 717.5 / 717.5 717.5 / 717.5 Weight 88.1 kg Intake: IV 717.5 / 717.5 717.5 / 717.5 Zosyn 4.5 GM Premix 4.5 gm In 200 / 200 200 / 200 100 ml @ 200 mls/hr IV.SIG Q6H [facility] Rx#:[id number] Vancomycin Inj 1,750 MG In NS 517.5 / 517.5 517.5 / 517.5 Inj 500 ML @ 250 mls/hr IV.SIG Q12H [facility] Rx#:[id number] Other: # Voids 2 Date of Last Bowel Movement 02/08/18 02/08/18 Narrative: GENERAL: Well-nourished, well-developed patient. Cooperative and engaging. No acute distress. SKIN: Abscess on left occiput was covered and dressed but is visibly smaller than yesterday. The overlying dressing showed evidence of increased drainage. Abscess over the l right malleolus appears to be draining well and looks less erythematous than it did yesterday but continues to drain purulent material. The erythema around the right ankle has begun to recede from previous demarcation. Patient also has new pinpoint infection onto the left adnexa that extends begin to drain as well underlying tissue does show induration about about a centimeter in diameter. Does not appear and is not consistent with hidradenitis suppurativa. EYES: No scleral icterus. No injection or drainage. EOMI. HENT: Normocephalic. Atraumatic. CARDIOVASCULAR: Regular rate and rhythm without obvious murmurs, gallops, or rubs. RESPIRATORY: Breath sounds equal bilaterally. No accessory muscle use. CTAB. GASTROINTESTINAL: Abdomen soft, non-tender, nondistended. BS WNL. BACK: Nontender without obvious deformity. No CVA tenderness. NEURO/PSYCH: Afocal. Awake, alert, and oriented x3. Assessment and Plan - Assessment (1) Abscess of scalp Code(s): L02.811 - Cutaneous abscess of head [any part, except face] Status: Acute Plan: This patient is a homeless 47-year-old male admitted for abscess on the occiput as well as on right malleolus. Erythema surrounding abscess on left occiput of his scalp appears to be receding from previous demarcation and appears to be globally smaller than yesterday. Dressing on back of occiput shows good drainage of the wound. Patient seen by wound care who recommended thorough irrigation and packing to allow drainage. Surgery was consulted and did not recommend additional I&D at this time. -Follow wound care instructions -Continue broad-spectrum antibiotics -Blood culture showed no growth at 2 day -Fungal smear negative, fungal culture pending (2) Cellulitis of right ankle Code(s): L03.115 - Cellulitis of right lower limb Status: Acute Plan: Patient cellulitis of the right ankle appears much better this morning. Area of erythema has receded approximately 1.5 cm from previously demarcated area. The wound continues to drain green purulent material. Gram stain and wound cultures have returned for the right ankle which showed MRSA, patient to continue on vancomycin. Patient seen by wound care and wound is currently irrigated and packed. -Follow wound care recommendations -Monitor margins -Continue vancomycin (3) Abscess of axilla, left Code(s): L02.412 - Cutaneous abscess of left axilla Status: Acute Plan: Patient presented this morning with a small indurated draining abscess measuring estimated only 1-1/2 cm in diameter. Area started off as a small pimple yesterday patient reports that he ruptured this morning. Patient is currently on broad-spectrum antibiotics, due to the superficial nature of the small area mupirocin will also be added as an ointment to the wound. Patient was instructed to not touch the area. -Continue broad-spectrum antibiotics -Mupirocin ointment over the area (4) Schizophrenia Code(s): F20.9 - Schizophrenia, unspecified Status: Acute Plan: Patient reports being diagnosed with schizophrenia in 1998 and placed on Geodon 2015 when he cannot afford his medication any longer. Patient denies any visual or auditory hallucinations at this time. Patient also denies patient currently asymptomatic and will be referred to psychiatric treatment outpatient. -If patient becomes acutely psychotic consider the use of Geodon (5) Diabetes Code(s): E11.9 - Type 2 diabetes mellitus without complications Status: Acute Plan: Reports previously being diagnosed as a type II diabetic years ago, a diagnosis was later rescinded and deemed a missed diagnosis. Patient had a random glucose of 91 in the ED and 91 this morning and repeat blood work. Patient unlikely to have diabetes, and history of missed diagnosis most likely correct. -Monitor for any signs of hypoglycemia
[2018-02-11] MEDS ORDERED: Pharmacy Ordered Lab Info OTHER ONE (00:45)
[2018-02-11] MEDS: Vancomycin Inj 1,750 MG in Sodium Chlor 0.9% Inj 500 ML IV.SIG SCH ×2 (00:48→13:33)
[2018-02-11] MEDS: Piperacil/Tazo 4.5 GM Premix 4.5 GM/100 ML BAG IV.SIG SCH (06:19)
[2018-02-11] MEDS: Ibuprofen 400 MG Tablet PO SCH ×3 (06:19→17:53)
--- NOTE | 2018-02-11 09:08 | P.PNFP ---
Subjective Interval history: Patient was seen at bedside this morning. Overnight patient was hypertensive, but asymptomatic. Patient continues to report feeling well. He denies any pain in any of the areas of the abscess. Patient denies any subjective fevers, chills, shortness of breath, chest pain, nausea, or vomiting. The plan was discussed with the patient which he reported understanding and all questions were answered to the patient's satisfaction. Results - Labs Result diagrams: 02/10/18 06:16 02/11/18 08:41 Abnormal lab results 02/11/18 Range/Units 00:10 Vancomycin Trough 17.3 H (5.0-10.0) mcg/mL Physical Exam Vital signs: Vital Signs 02/10/18 09:48 02/10/18 12:00 02/10/18 16:00 Temperature 97.7 F 97.4 F L Pulse Rate 61 56 L Respiratory Rate 14 18 Blood Pressure 149/77 H 154/83 H Pulse Oximetry 93 L 98 97 02/10/18 20:00 02/11/18 00:00 02/11/18 04:00 Temperature 98.2 F 97.7 F 98.0 F Pulse Rate 58 L 60 50 L Respiratory Rate 20 20 20 Blood Pressure 144/84 H 141/87 H 146/88 H Pulse Oximetry 96 97 98 02/11/18 08:00 Temperature 97.9 F Pulse Rate 53 L Respiratory Rate 16 Blood Pressure 160/96 H Pulse Oximetry 97 Intake & Output 02/10/18 02/11/18 02/11/18 18:59 06:59 18:59 Intake Total 617.5 / 617.5 817.5 / 817.5 Balance 617.5 / 617.5 817.5 / 817.5 Weight 87.1 kg Intake: IV 617.5 / 617.5 817.5 / 817.5 Zosyn 4.5 GM Premix 4.5 gm In 100 / 100 300 / 300 100 ml @ 200 mls/hr IV.SIG Q6H [facility] Rx#:[id number] Vancomycin Inj 1,750 MG In NS 517.5 / 517.5 517.5 / 517.5 Inj 500 ML @ 250 mls/hr IV.SIG Q12H [facility] Rx#:[id number] Other: # Voids 2 Date of Last Bowel Movement 02/08/18 02/10/1802/10/18 Narrative: GENERAL: Well-nourished, well-developed patient. Cooperative and engaging. No acute distress. SKIN: Abscess on left occiput continues to shrink from previous margins. This morning the abscess had very little erythema which was confined only to area directly proximal to the incision. Wound continues to drain purulent material. Wound was recently dressed this morning. Abscess over the right malleolus appears to be draining well with receding erythema that is now approximately 4-5 cm away from previous demarcated margin. Patient reports area continues to drain purulent material. Abscess under left axilla appears much less erythematous than yesterday. Patient reported is nontender and is approximately a 1 cm diameter area of subcutaneous induration. Area did not appear to be draining when examined this morning. Does not appear and is not consistent with hidradenitis suppurativa. EYES: No scleral icterus. No injection or drainage. EOMI. HENT: Normocephalic. Atraumatic. CARDIOVASCULAR: Regular rate and rhythm without obvious murmurs, gallops, or rubs. RESPIRATORY: Breath sounds equal bilaterally. No accessory muscle use. CTAB. GASTROINTESTINAL: Abdomen soft, non-tender, nondistended. BS WNL. BACK: Nontender without obvious deformity. No CVA tenderness. NEURO/PSYCH: Afocal. Awake, alert, and oriented x3. Assessment and Plan - Assessment (1) Abscess of scalp Code(s): L02.811 - Cutaneous abscess of head [any part, except face] Status: Acute Plan: This patient is a homeless 47-year-old male admitted for abscess on the occiput as well as on right malleolus. Erythema around the incision greatly reduced as well as induration has also shrunk significantly since admission. Patient continues to get dressing changes daily. -Continue wound care instructions and daily dressing changes -Discontinue Zosyn continue vancomycin -Blood culture showed no growth at 2 day -Fungal smear negative, fungal culture pending -Anticipate discharge in 2 days with oral clindamycin -Case management consulted for post discharge wound care (2) Cellulitis of right ankle Code(s): L03.115 - Cellulitis of right lower limb Status: Acute Plan: Abscess with culture confirmed MRSA on right malleolus continues to improve. Much less erythema and has greatly regressed since admission. -Continue wound care recommendations -Monitor margins -Continue vancomycin (3) Abscess of axilla, left Code(s): L02.412 - Cutaneous abscess of left axilla Status: Acute Plan: Area much less erythematous than yesterday. Area does not appear to be draining but continues to have subcutaneous induration. -Continue vancomycin -Mupirocin ointment over the area (4) Hypertension Code(s): I10 - Essential (primary) hypertension Status: Acute Plan: Patient continues to be hypertensive since admission. Blood pressures have ranged from high 130s systolic to 160s systolic. Patient would benefit from blood pressure control. Will begin hydrochlorothiazide. -Begin hydrochlorothiazide 25 mg daily -Monitor daily blood pressures (5) Schizophrenia Code(s): F20.9 - Schizophrenia, unspecified Status: Acute Plan: Patient reports being diagnosed with schizophrenia in 1998 and placed on Geodon 2015 when he cannot afford his medication any longer. Patient denies any visual or auditory hallucinations at this time. Patient also denies patient currently asymptomatic and will be referred to psychiatric treatment outpatient. -If patient becomes acutely psychotic consider the use of Geodon (6) Diabetes Code(s): E11.9 - Type 2 diabetes mellitus without complications Status: Acute Plan: Reports previously being diagnosed as a type II diabetic years ago, a diagnosis was later rescinded and deemed a missed diagnosis. Patient had a random glucose of 91 in the ED and has normoglycemic, patient unlikely to have diabetes , and history of misdiagnosis most likely correct. -Monitor for any signs of hypoglycemia
[2018-02-11 09:45] LABS: Glomerular Filtration Rate Greater Than 89 mL/min (>89)
[2018-02-11] MEDS: hydroCHLOROthiazide 25 MG Tablet PO SCH (10:52)
--- NOTE | 2018-02-11 14:40 | P.PNGS ---
Subjective Interval history: Resting in bed Scalp is tender Physical Exam Vital signs: Vital Signs 02/10/18 16:00 02/10/18 20:00 02/11/18 00:00 Temperature 97.4 F L 98.2 F 97.7 F Pulse Rate 56 L 58 L 60 Respiratory Rate 18 20 20 Blood Pressure 154/83 H 144/84 H 141/87 H Pulse Oximetry 97 96 97 02/11/18 04:00 02/11/18 08:00 02/11/18 09:37 Temperature 98.0 F 97.9 F Pulse Rate 50 L 53 L Respiratory Rate 20 16 Blood Pressure 146/88 H 160/96 H Pulse Oximetry 98 97 97 02/11/18 12:00 Temperature 98.0 F Pulse Rate 55 L Respiratory Rate 15 Blood Pressure 160/99 H Pulse Oximetry 98 Intake & Output 02/10/18 02/11/18 02/11/18 18:59 06:59 18:59 Intake Total 617.5 / 617.5 817.5 / 817.5 Balance 617.5 / 617.5 817.5 / 817.5 Weight 87.1 kg Intake: IV 617.5 / 617.5 817.5 / 817.5 Zosyn 4.5 GM Premix 4.5 gm In 100 / 100 300 / 300 100 ml @ 200 mls/hr IV.SIG Q6H [facility] Rx#:[id number] Vancomycin Inj 1,750 MG In NS 517.5 / 517.5 517.5 / 517.5 Inj 500 ML @ 250 mls/hr IV.SIG Q12H [facility] Rx#:[id number] Other: # Voids 2 Date of Last Bowel Movement 02/08/18 02/10/18 02/10/18 Narrative: Resting in bed Posterior scalp----- open area with scant purulent drainage ---cleansed with saline Results - Labs 02/10/18 06:16 02/12/18 06:59 Laboratory Results - last 24 hr 02/11/18 02/11/18 00:10 08:41 Creatinine 0.76 Estimated GFR Greater than 89 Vancomycin Trough 17.3 H - Imaging Imaging: ITS Impressions Ankle MRI 02/08/18 16:14 CONCLUSION: 1. Subcutaneous inflammatory changes with small subcutaneous fluid collection over the tip of the lateral malleolus as above without definite osteomyelitis or joint changes to suggest a septic arthritis. 2. The small fluid collection could be accessed carefully under ultrasound Assessment and Plan - Assessment (1) Abscess of scalp Code(s): L02.811 - Cutaneous abscess of head [any part, except face] Status: Acute Plan: 47 year old male with posterior scalp abscess; s/p I&D in ED -Continues to drain -No further surgical intervention needed -Continuing cleaning -Patient could benefit from a shower As above; no further surgery/physical debridement needed at this time. The exam, history, and the medical decision-making described in the above note were completed with the assistance of the mid-level provider. I reviewed and agree with the findings presented. I attest that I had a [id number] encounter with the patient on the same day, and personally performed and documented my assessment and findings in the medical record.
[2018-02-12] MEDS: Ibuprofen 400 MG Tablet PO SCH ×4 (00:14→18:28)
[2018-02-12] MEDS: Vancomycin Inj 1,750 MG in Sodium Chlor 0.9% Inj 500 ML IV.SIG SCH ×2 (00:14→15:52)
[2018-02-12 08:01] LABS: Glomerular Filtration Rate Greater Than 89 mL/min (>89)
--- NOTE | 2018-02-12 10:02 | P.PNFP ---
Subjective Interval history: Patient was seen at bedside this morning. Overnight patient was hypertensive after being treated with HCTZ, but was asymptomatic. Patient continues to report feeling well. He continues to deny any pain in any of the areas of the abscess. Patient denies any subjective fevers, chills, shortness of breath, chest pain, nausea, or vomiting. Patient is aware that discharge tomorrow on oral antibiotics is probable and has been given a blue card to receive outpatient wound care at no charge. It was also discussed the patient that switching to lisinopril would be of benefit to him as he can get it for free at [email or web address]. Patient agrees that this is the best hypertensive medication for him at this time. Patient is aware and understands plan at this time and has no further questions. Results - Labs Result diagrams: 02/10/18 06:16 02/12/18 06:59 BMP 02/12/18 06:59 Creatinine 0.72 Physical Exam Vital signs: Vital Signs 02/11/18 12:00 02/11/18 16:00 02/11/18 19:43 Temperature 98.0 F 98.0 F 98.4 F Pulse Rate 55 L 54 L 56 L Respiratory Rate 15 16 17 Blood Pressure 160/99 H 146/93 H 155/78 H Pulse Oximetry 98 97 98 02/12/18 00:00 02/12/18 02:01 02/12/18 04:00 Temperature 97.9 F 97.4 F L Pulse Rate 52 L 59 L Respiratory Rate 17 17 18 Blood Pressure 155/98 H 164/93 H Pulse Oximetry 97 95 02/12/18 08:00 02/12/18 08:39 Temperature 97.9 F Pulse Rate 60 Respiratory Rate 20 Blood Pressure 165/99 H Pulse Oximetry 98 95 Intake & Output 02/11/18 02/12/18 02/12/18 18:59 06:59 18:59 Intake Total 1237.5 / 1237.5 517.5 / 517.5 Balance 1237.5 / 1237.5 517.5 / 517.5 Weight 86.5 kg Intake: IV 517.5 / 517.5 517.5 / 517.5 Vancomycin Inj 1,750 MG In NS 517.5 / 517.5 517.5 / 517.5 Inj 500 ML @ 250 mls/hr IV.SIG Q12H [facility] Rx#:[id number] Oral 720 / 720 Other: # Voids 3 2 Date of Last Bowel Movement 02/11/18 02/11/18 # Bowel Movements 1 Narrative: GENERAL: Well-nourished, well-developed patient. Cooperative and engaging. No acute distress. SKIN: Abscess on left occiput continues to shrink from previous margins. This morning the abscess continues to have some erythema that is approximately 1-2 cm surrounding open wound. Wound continues to drain purulent material. There continues to be an area of induration surrounding open wound but this area continues to shrink daily. Abscess over the right malleolus continues to drain purulent material. There appears to be a small second pocket of drainage just proximal to the original incision and drainage that is very close to rupturing naturally. This area is less than a centimeter in diameter. Wound continues to look better daily. Abscess under left axilla improving. Patient reported is nontender and is approximately a <1 cm diameter area of subcutaneous induration. Area did not appear to be draining when examined this morning. Does not appear and is not consistent with hidradenitis suppurativa. EYES: No scleral icterus. No injection or drainage. EOMI. HENT: Normocephalic. Atraumatic. CARDIOVASCULAR: Regular rate and rhythm without obvious murmurs, gallops, or rubs. RESPIRATORY: Breath sounds equal bilaterally. No accessory muscle use. CTAB. GASTROINTESTINAL: Abdomen soft, non-tender, nondistended. BS WNL. BACK: Nontender without obvious deformity. No CVA tenderness. NEURO/PSYCH: Afocal. Awake, alert, and oriented x3. Assessment and Plan - Assessment (1) Abscess of scalp Code(s): L02.811 - Cutaneous abscess of head [any part, except face] Status: Acute Plan: This patient is a homeless 47-year-old male admitted for abscess on the occiput as well as on right malleolus. Erythema around the incision continues to recede. Area of induration although still present has also reduced in size since yesterday. Patient continues to get dressing changes daily. -Continue wound care instructions and daily dressing changes -Continue vancomycin -Blood culture continue to show no growth -Fungal smear negative, fungal culture negative -Anticipate discharge tomorrow on clindamycin -Per case management patient will be to receive clindamycin upon discharge. (2) Cellulitis of right ankle Code(s): L03.115 - Cellulitis of right lower limb Status: Acute Plan: Abscess with culture confirmed MRSA on right malleolus continues to improve. Much less erythema and has greatly regressed since admission. -Continue wound care recommendations -Monitor margins -Continue vancomycin (3) Abscess of axilla, left Code(s): L02.412 - Cutaneous abscess of left axilla Status: Acute Plan: Area continues to improve. Area does not appear to be draining but continues to have subcutaneous induration that is smaller today than yesterday. -Continue vancomycin -Mupirocin ointment over the area (4) Hypertension Code(s): I10 - Essential (primary) hypertension Status: Acute Plan: Patient continues to be hypertensive since admission despite treatment with hydrochlorothiazide. Due to patient's status and ability to get medication for free at [facility] lisinopril has been chosen as a preferred hypertensive medication. Patient will be on lisinopril 20 mg daily. -Begin lisinopril 20 mg daily -Monitor daily blood pressures (5) Schizophrenia Code(s): F20.9 - Schizophrenia, unspecified Status: Acute Plan: Patient reports being diagnosed with schizophrenia in 1998 and placed on Geodon 2016 when he cannot afford his medication any longer. Patient denies any visual or auditory hallucinations at this time. Patient also denies patient currently asymptomatic and will be referred to psychiatric treatment outpatient. -If patient becomes acutely psychotic consider the use of Geodon (6) Diabetes Code(s): E11.9 - Type 2 diabetes mellitus without complications Status: Acute Plan: Reports previously being diagnosed as a type II diabetic years ago, a diagnosis was later rescinded and deemed a missed diagnosis. Patient had a random glucose of 91 in the ED and has been normoglycemic since admission, patient unlikely to have diabetes, and history of misdiagnosis most likely correct. -Monitor for any signs of hypoglycemia
[2018-02-12] MEDS: hydroCHLOROthiazide 25 MG Tablet PO SCH (10:27)
[2018-02-12] MEDS: Lisinopril 20 MG Tablet PO SCH (10:32)
--- NOTE | 2018-02-12 21:40 | P.PNGS ---
Subjective Interval history: Resting in bed No issues Physical Exam Vital signs: Vital Signs 02/12/18 00:00 02/12/18 02:01 02/12/18 04:00 Temperature 97.9 F 97.4 F L Pulse Rate 52 L 59 L Respiratory Rate 17 17 18 Blood Pressure 155/98 H 164/93 H Pulse Oximetry 97 95 02/12/18 08:00 02/12/18 08:39 02/12/18 12:00 Temperature 97.9 F 97.7 F Pulse Rate 60 65 Respiratory Rate 16 18 Blood Pressure 165/99 H 156/87 H Pulse Oximetry 98 95 95 02/12/18 16:00 02/12/18 20:00 Temperature 97.6 F 98.1 F Pulse Rate 60 61 Respiratory Rate 18 18 Blood Pressure 160/88 H 142/93 H Pulse Oximetry 96 98 Intake & Output 02/12/18 02/12/18 02/13/18 06:59 18:59 06:59 Intake Total 517.5 / 517.5 Balance 517.5 / 517.5 Weight 86.5 kg Intake: IV 517.5 / 517.5 Vancomycin Inj 1,750 MG In NS 517.5 / 517.5 Inj 500 ML @ 250 mls/hr IV.SIG Q12H [facility] Rx#:[id number] Other: # Voids 2 2 Date of Last Bowel Movement 02/11/18 02/11/18 # Bowel Movements 1 Narrative: Alert and awake Posterior scalp--- abscess continues to drain; cleansed area with NS and re applied dressing Results - Labs 02/10/18 06:16 02/12/18 06:59 Laboratory Results - last 24 hr 02/12/18 06:59 Creatinine 0.72 Estimated GFR Greater than 89 - Imaging Imaging: ITS Impressions Ankle MRI 02/08/18 16:14 CONCLUSION: 1. Subcutaneous inflammatory changes with small subcutaneous fluid collection over the tip of the lateral malleolus as above without definite osteomyelitis or joint changes to suggest a septic arthritis. 2. The small fluid collection could be accessed carefully under ultrasound Assessment and Plan - Assessment (1) Abscess of scalp Code(s): L02.811 - Cutaneous abscess of head [any part, except face] Status: Acute Plan: 47 year old male with posterior scalp abscess; s/p I&D in ED -Continues to drain -No further surgical intervention needed -Continuing cleaning -Patient could benefit from a shower As above, no further surgery needed. The exam, history, and the medical decision-making described in the above note were completed with the assistance of the mid-level provider. I reviewed and agree with the findings presented. I attest that I had a [id number] encounter with the patient on the same day, and personally performed and documented my assessment and findings in the medical record.
[2018-02-13] MEDS: Ibuprofen 400 MG Tablet PO SCH ×3 (00:44→12:18)
[2018-02-13] MEDS ORDERED: Pharmacy Ordered Lab Info OTHER ONE (00:45)
[2018-02-13] MEDS: Vancomycin Inj 1,750 MG in Sodium Chlor 0.9% Inj 500 ML IV.SIG SCH (00:46)
--- NOTE | 2018-02-13 10:22 | P.PNFP ---
Subjective Interval history: No acute events overnight. Patient is doing well. Denies any fevers, chest pain, shortness of breath, nausea vomiting, abdominal pain. Discussed with patient about discharging him today with p.o. clindamycin and Bactroban. Patient has follow-up with wound care. Results - Labs Result diagrams: 02/10/18 06:16 02/12/18 06:59 Physical Exam Vital signs: Vital Signs 02/12/18 12:00 02/12/18 16:00 02/12/18 20:00 Temperature 97.7 F 97.6 F 98.1 F Pulse Rate 65 60 61 Respiratory Rate 18 18 Blood Pressure 156/87 H 160/88 H 142/93 H Pulse Oximetry 95 96 98 02/13/18 00:00 02/13/18 04:00 02/13/18 08:00 Temperature 97.6 F 97.7 F 98 F Pulse Rate 55 L 54 L 52 L Respiratory Rate 18 18 16 Blood Pressure 144/88 H 156/86 H 163/87 H Pulse Oximetry 98 96 96 Intake & Output 02/12/18 02/13/18 02/13/18 18:59 06:59 18:59 Intake Total 517.5 / 517.5 Balance 517.5 / 517.5 Weight 87 kg Intake: IV 517.5 / 517.5 Vancomycin Inj 1,750 MG In NS 517.5 / 517.5 Inj 500 ML @ 250 mls/hr IV.SIG Q12H [facility] Rx#:[id number] Other: # Voids 2 3 Date of Last Bowel Movement 02/11/18 # Bowel Movements 1 Narrative: GENERAL: Well-nourished, well-developed patient. Cooperative and engaging. No acute distress. SKIN: Abscess on left occiput continues to shrink from previous margins. This morning the abscess continues to have some erythema that is approximately 1-2 cm surrounding open wound. Wound continues to drain purulent material. There continues to be an area of induration surrounding open wound but this area continues to shrink daily. Abscess over the right malleolus continues to drain purulent material. There appears to be a small second pocket of drainage just proximal to the original incision and drainage that is very close to rupturing naturally. This area is less than a centimeter in diameter. Wound continues to look better daily. Abscess under left axilla improving. Patient reported is nontender and is approximately a <1 cm diameter area of subcutaneous induration. Area did not appear to be draining when examined this morning. Does not appear and is not consistent with hidradenitis suppurativa. EYES: No scleral icterus. No injection or drainage. EOMI. HENT: Normocephalic. Atraumatic. CARDIOVASCULAR: Regular rate and rhythm without obvious murmurs, gallops, or rubs. RESPIRATORY: Breath sounds equal bilaterally. No accessory muscle use. CTAB. GASTROINTESTINAL: Abdomen soft, non-tender, nondistended. BS WNL. BACK: Nontender without obvious deformity. No CVA tenderness. NEURO/PSYCH: Afocal. Awake, alert, and oriented x3. Assessment and Plan - Assessment (1) Abscess of scalp Code(s): L02.811 - Cutaneous abscess of head [any part, except face] Status: Acute Plan: This patient is a homeless 47-year-old male admitted for abscess on the occiput as well as on right malleolus. -Continue wound care instructions and daily dressing changes -Discontinue vancomycin, will discharge patient with PO clinda -Blood culture continue to show no growth -Fungal smear negative, fungal culture negative -Per case management patient will be to receive clindamycin upon discharge. (2) Cellulitis of right ankle Code(s): L03.115 - Cellulitis of right lower limb Status: Acute Plan: Plan as above. (3) Abscess of axilla, left Code(s): L02.412 - Cutaneous abscess of left axilla Status: Acute Plan: -Mupirocin ointment over the area (4) Hypertension Code(s): I10 - Essential (primary) hypertension Status: Acute Plan: Patient continues to be hypertensive since admission despite treatment with hydrochlorothiazide. Due to patient's status and ability to get medication for free at [facility] lisinopril has been chosen as a preferred hypertensive medication. Patient will be on lisinopril 20 mg daily. -Continue lisinopril 20 mg daily -Monitor daily blood pressures (5) Schizophrenia Code(s): F20.9 - Schizophrenia, unspecified Status: Acute Plan: Patient reports being diagnosed with schizophrenia in 1998 and placed on Geodon 2015 when he cannot afford his medication any longer. Patient denies any visual or auditory hallucinations at this time. Patient also denies patient currently asymptomatic and will be referred to psychiatric treatment outpatient. -If patient becomes acutely psychotic consider the use of Geodon (6) Nutrition, metabolism, and development symptoms Code(s): R63.8 - Other symptoms and signs concerning food and fluid intake Status: Acute Plan: Fluids: none Diet: Regular vitals q4h, monitor I & Os DVT ppx: ambulation
[2018-02-13] MEDS: Lisinopril 20 MG Tablet PO SCH (10:28)
[2018-02-13 12:11] VITALS: BP 121/66; PULSE 62; RESP 18; TEMP 98.4; O2SAT 98
--- NOTE | 2018-02-13 22:15 | P.DS ---
Date of admission: 02/08/18 16:09 Primary care physician: No Primary Care Physician Brief History from admission: This patient is a homeless 47-year-old male with a history of schizophrenia, previously diagnosed diabetes which was deemed a missed diagnosis, GERD, who is who presents the ED for opened abscess on the left occiput as well as on the right lateral ankle. Patient previously in the ED yesterday for incision and drainage of both sites and was discharged with clindamycin and Bactrim which she was not able to fill due to his homeless and noninsured status. Patient reports that the abscess on his left occiput began 1 week ago as a pimple that he eventually popped and started to put peroxide on as well as triple antibiotic. He continued to be gets pimple the pain will continue to drain pus and blood. He reports that the area is tender when palpated deeply but overall does not hurt. He reports that the ankle abscess appeared 3-4 days ago and began as a soreness. He relieved that he had rolled or twisted his ankle unknowingly. The pain continued until the abscess formed. He said he felt 3 soft little balls inside of his right ankle which he then later popped and released pus. He denies any fevers, chills, chest pain, shortness of breath, nausea, vomiting, abdominal pain, or diarrhea, but does endorse coughing up phlegm for the last 2 weeks that is yellow. PMHx: Schizophrenia diagnosed in 1998 previously treated with Geodon until 2016 when patient lost her job and could not afford the medication, GERD, diabetes which was ruled a missed diagnosis after 2 years, and then unrepaired inguinal hernia Surgical Hx: Patient has had multiple dental surgeries starting at 3 years of age due to a retracted tooth which she reports was on his maxilla near his nose. He had his wisdom teeth extracted at the age of 15. Patient received an I&D of his head and right ankle yesterday. Medications: Patient previously on Geodon until 2016 currently not on any medications FHx: Mother at the age of 71 due to severe heart disease, father at 82 from suicide Social Hx: Patient has been homeless since 2016 he was previously working in factories, he has a 10-[id number] smoking history with a 7-year break of absence. Patient is currently still an every day smoker smoking a pack a day. He denies any use of ethanol or drugs because he cannot afford it. Allergies: None Code Status: Full code DS: Diagnosis - Discharge Diagnosis (1) Abscess of scalp Status: Acute (2) Cellulitis of right ankle Status: Acute (3) Abscess of axilla, left Status: Acute (4) Hypertension Status: Acute (5) Schizophrenia Status: Acute (6) Nutrition, metabolism, and development symptoms Status: Acute DS: Medications - Discharge Medications Prescriptions: clindamycin HCl [Cleocin HCl] 300 mg PO QID 7 Days #28 cap Lactobacillus acidoph-L.bulgar [Floranex] 1 gm PO DAILY #7 packet lisinopril 20 mg PO DAILY #90 tab mupirocin calcium [Bactroban] 1 applicatio TOPICAL BID #1 tube DS: Summary - Time Spent with Patient Total time spent providing and/or coordinating discharge services: Exam Vital signs: Vital Signs 02/13/18 00:00 02/13/18 04:00 02/13/18 08:00 Temperature 97.6 F 97.7 F 98 F Pulse Rate 55 L 54 L 52 L Respiratory Rate 18 18 16 Blood Pressure 144/88 H 156/86 H 163/87 H Pulse Oximetry 98 96 96 02/13/18 12:00 Temperature 98.4 F Pulse Rate 62 Respiratory Rate 18 Blood Pressure 121/66 Pulse Oximetry 98 Intake & Output 02/13/18 02/13/18 02/14/18 06:59 18:59 06:59 Intake Total 517.5 / 517.5 Balance 517.5 / 517.5 Weight 87 kg Intake: IV 517.5 / 517.5 Vancomycin Inj 1,750 MG In NS 517.5 / 517.5 Inj 500 ML @ 250 mls/hr IV.SIG Q12H [facility] Rx#:[id number] Other: # Voids 3 Date of Last Bowel Movement 02/13/18 Results Labs on day of discharge: Labs from last 24 hours 02/13/18 00:45 Vancomycin Trough 8.1 - Impressions ITS Impressions Ankle MRI 02/08/18 16:14 CONCLUSION: 1. Subcutaneous inflammatory changes with small subcutaneous fluid collection over the tip of the lateral malleolus as above without definite osteomyelitis or joint changes to suggest a septic arthritis. 2. The small fluid collection could be accessed carefully under ultrasound Discharge Plan - Discharge Disposition Patient Disposition: 01 Discharge Home - Discharge Condition Condition: Stable - Discharge Order Discharge Orders: Discharge Order (Routine); Ordered 02/13/18 Ordered By: Deisy eLw - Physicians Team Primary Care Provider: Primary Care Migdalia Bustamante Attending Provider: Anthony Etienne Other Providers: Fernando Mcclendon MD
== END 2018-02-13 16:19 | disposition home or self-care (01) ==
LOC: NEPE 14:36 → NEDA 16:09 → N05 17:59
PROVIDERS: ADMIT Family Medicine; ATTEND Family Medicine